=== PATIENT | female | born 1960 | race Caucasian/White ===

== ENCOUNTER 2025-07-09 11:21 | Emergency (ER) | payer MEDICAID, MEDICARE ==
[2025-07-09 13:03] LABS: #Basophils 0.04 10x3/uL (0.0-0.2); #Eosinophils 0.15 10x3/uL (0.0-0.7); #Monocytes 0.66 10x3/uL (0.11-0.59); #Neutrophils 6.14 10x3/uL (1.40-6.50); %Basophils 0.4 % (0.0-1.0); %Eosinophils 1.6 % (0.0-10.0); %Lymphocytes 24.0 % (21.0-51.0); %Monocytes 7.1 % (0.0-10.0); %Neutrophils 66.6 % (42.0-75.0); Hematocrit 43.6 % (36.0-47.0); Hemoglobin 14.6 g/dL (12.0-16.0); Mean Corpuscular Hemoglobin 29.4 pg (27.0-31.0); Mean Corpuscular Volume 87.7 fL (78.0-98.0); Platelet Count 242 10x3/uL (130-400); Red Blood Cell (RBC) Count 4.97 mill/uL (4.20-5.40); White Blood Cell (WBC) Count 9.24 10x3/uL (4.8-10.8)
[2025-07-09] MEDS ORDERED: GUAIFENESIN SF SOLN 200 MG/10 ML UDCUP ONE (13:11)
[2025-07-09 13:33] LABS: ALT (SGPT) 14 U/L (Less than 34); AST (SGOT) 28 U/L (11-34); Albumin 4.2 g/dL (3.1-4.5); Alkaline Phosphatase 95 U/L (40-110); Anion Gap 11 mmol/L (10-20); BUN (Urea Nitrogen) 11 mg/dL (9.8-20.1); Bilirubin, Total 0.4 mg/dL (0.3-1.2); Calc. Creatinine Clearance 0 mL/min (70-130); Calcium 9.0 mg/dL (7.8-10.44); Carbon Dioxide 30 mmol/L (23-31); Chloride 105 mmol/L (98-107); Globulin 3.0 g/dL (2.4-3.5); Glucose 107 mg/dL (80-115); Magnesium 2.1 mg/dL (1.6-2.6); Potassium 3.0 mmol/L (3.5-5.1); Sodium 143 mmol/L (136-145)
[2025-07-09 13:39] LABS: CAUTI Indications for Culture Dysuria,urgency,freq; Glucose, Urine (Dipstick) Normal (Negative); Leukocyte 250 Leu/uL (Negative); Mucous/LPF Rare LPF (<2+); Protein, Urine (Dipstick) Negative (Neg-Trace); RBC/HPF 0-3 HPF (0-3); Specific Gravity, Urine 1.013 (1.002-1.036); WBC/HPF 0-3 HPF (0-3)
[2025-07-09 13:42] LABS: Bacteria/HPF 1+ HPF (None Seen)
[2025-07-09 13:43] LABS: Urine Culture Reflex No No
== END 2025-07-09 14:49 | disposition home or self-care (01) ==
LOC: ERS 11:21
DX: J06.9 Acute upper respiratory infection, unspecified (principal); I10 Essential (primary) hypertension; J44.9 Chronic obstructive pulmonary disease, unspecified
CPT/HCPCS: 71045; 80053; 81001; 83735; 84484; 85025; 87428; 93005; 96374